=== PATIENT | male | born 1990 | race Caucasian/White ===

== ENCOUNTER 2024-09-14 08:31 | Emergency (ER) | payer OTHER ==
[~2024-09-14] VITALS: Ht 152.4 cm; Wt 62.0 kg
[2024-09-14 08:39] VITALS: O2SAT 100
[2024-09-14 09:01] LABS: BASOPHILS % 0.3 % (0.0-2.0); EOSINOPHILS % 0.2 % (0.0-5.0); HEMATOCRIT. 47.7 % (42.0-52.0); HEMOGLOBIN. 16.3 g/dL (14.0-18.0); LYMPHOCYTES % 26.9 % (20.0-50.0); MEAN CORPUSCULAR HEMOGLOBIN 31.1 pg (28.0-32.0); MEAN CORPUSCULAR HGB CONC 34.2 g/dL (31.0-37.0); MEAN CORPUSCULAR VOLUME 90.9 fL (80.0-94.0); MEAN PLATELET VOLUME 8.1 fl (7.4-10.4); MONOCYTES % 5.5 % (2.0-8.0); NEUTROPHILS % 67.1 % (40.0-76.0); PLATELET 305 x1000/uL (130-400); RED BLOOD CELL COUNT 5.24 mill/uL (4.7-6.1); RED CELL DISTRIBUTION WIDTH 12.7 % (11.6-14.6); WHITE BLOOD COUNT 7.6 x1000/uL (4.5-11.0)
[2024-09-14] MEDS: SODIUM CHLORIDE 0.9% 1,000 ML IV ONE (09:07)
[2024-09-14 09:22] LABS: CLARITY URINE CLEAR (CLEAR); COLOR URINE YELLOW (YELLOW); GLUCOSE URINE 3+ (NEGATIVE); KETONES URINE 1+ (NEGATIVE); LEUKOCYTE ESTERASE URINE NEGATIVE (NEGATIVE); NITRITE URINE NEGATIVE (NEGATIVE); OCCULT BLOOD URINE NEGATIVE (NEGATIVE); PROTEIN URINE NEGATIVE (NEGATIVE); SPECIFIC GRAVITY URINE 1.021 (1.005-1.030); UROBILINOGEN URINE 0.2 E.U./dL (0.2-1.0)
[2024-09-14 09:24] LABS: CALCIUM 9.4 mg/dL (8.7-10.4); CARBON DIOXIDE 26 mEq/L (21-32)
[2024-09-14 09:27] LABS: CHLORIDE 93 mEq/L (98-107); POTASSIUM 4.1 mEq/L (3.5-5.1); SODIUM 130 mEq/L (136-145)
[2024-09-14 09:29] LABS: UREA NITROGEN BLOOD 21 mg/dL (9-23)
[2024-09-14 09:33] LABS: GLUCOSE 558 mg/dL (70-105)
[2024-09-14 09:38] LABS: BACTERIA URINE NONE SEEN; RBC URINE 0-2 /hpf (0-2); SQUAMOUS EPITHELIAL CELL URINE RARE /lpf (RARE/1+); WBC URINE 0-2 /hpf (0-2); YEAST URINE NONE SEEN
[2024-09-14] MEDS: INSULIN REGULAR (HUMULIN R) 1000UNITS/10ML VIAL IV SCH (10:26)
[2024-09-14 10:59] VITALS: BP 138/76; PULSE 88; RESP 16; TEMP 36.9; O2SAT 100
== END 2024-09-14 11:00 | disposition home or self-care (01) ==
LOC: ER 08:31
DX: E11.65 Type 2 diabetes mellitus with hyperglycemia (principal)
CPT/HCPCS: 99283; 96374; 96361; 80048; 81003; 82010; 82962; 85025; 36415; J7030; J1815